=== PATIENT | male | born 1955 | race Caucasian/White ===

== ENCOUNTER → 2016-08-11 | Outpatient (CLI) | payer BC ==
[~2016-08-11] MED LIST: FLUTICASON0.05 MG/AC NS; LISINOPRIL10 MG PO; MUCINEX100 MG PO; OMEPRAZOLE D/R20 MG PO; PEPTO-BISM262 MG/15 PO; PROAIR HFA0.09 MG/AC IH
[2016-08-11 10:41] VITALS: BP 148/84
== END ==
LOC: AMSURD 07:37
DX: R07.9 Chest pain, unspecified (principal)

== ENCOUNTER → 2017-01-11 | Outpatient (CLI) | payer BC ==
[2016-08-11 10:41] VITALS: BP 148/84
== END ==
LOC: LAB 14:34
DX: R19.7 Diarrhea, unspecified (principal); R10.30 Lower abdominal pain, unspecified

== ENCOUNTER → 2017-01-12 | Outpatient (CLI) | payer BC ==
[2016-08-11 10:41] VITALS: BP 148/84
== END ==
LOC: LAB 17:26
DX: R19.5 Other fecal abnormalities (principal); R10.30 Lower abdominal pain, unspecified

== ENCOUNTER → 2017-06-29 | Outpatient (CLI) | payer BC ==
[2016-08-11 10:41] VITALS: BP 148/84
[2017-06-29 14:33] LABS: URINE APPEARANCE CLEAR; URINE BILIRUBIN NEGATIVE (NEGATIVE); URINE BLOOD NEGATIVE (NEGATIVE); URINE COLOR YELLOW; URINE GLUCOSE NEGATIVE (NEGATIVE); URINE KETONE NEGATIVE (NEGATIVE); URINE LEUKOCYTE ESTERASE NEGATIVE (NEGATIVE); URINE NITRATE NEGATIVE (NEGATIVE); URINE PROTEIN(semi-quant) NEGATIVE (NEGATIVE); URINE UROBILINOGEN NORMAL (NORMAL); URINE WBC 0-1 /hpf (0-3)
== END ==
LOC: LAB 13:42
PROVIDERS: Nurse Practitioner Family
DX: R35.0 Frequency of micturition (principal); Z88.1 Allergy status to other antibiotic agents

== ENCOUNTER → 2017-08-04 | Outpatient (CLI) | payer BC ==
[2016-08-11 10:41] VITALS: BP 148/84
[2017-08-04 09:05] LABS: EOS # 0.1 (0.04-0.40); EOS % 2.4 % (0.0-4.0); HEMATOCRIT 48.4 % (42.0-52.0); HEMOGLOBIN 15.7 g/dL (13.5-18.0); LYMPH# 1.1 (1.50-4.00); MEAN CELL VOLUME 86 fl (78-100); MEAN CORPUSCULAR HEMOGLOBIN 28 pg (27-31); MEAN CORPUSCULAR HGB CONC 32 g/dL (33-37); MEAN PLATELET VOLUME 10.9 fl (7.4-10.4); MONO # 0.6 (0.20-0.80); NEU # 3.9 (1.40-6.50); PLATELET COUNT 202 K/mm3 (130-400); RED CELL DISTRIBUTION WIDTH 14.7 % (11.5-14.5); WHITE BLOOD COUNT 5.8 K/mm3 (4.8-10.8)
[2017-08-04 09:19] LABS: ALBUMIN 4.4 g/dL (3.5-5.0); BUN/CREATININE RATIO 24.1 (6.0-26.0); CALCIUM 9.3 mg/dL (8.4-10.2); POTASSIUM 3.8 mmol/L (3.6-5.0); TOTAL BILIRUBIN 0.6 mg/dL (0.2-1.3); TOTAL PROTEIN 7.5 g/dL (6.3-8.2)
[2017-08-04 10:09] LABS: ERYTHROCYTE SEDIMENTATION RATE 0 mm/hr (0-20); URINE APPEARANCE CLEAR; URINE BILIRUBIN NEGATIVE (NEGATIVE); URINE BLOOD NEGATIVE (NEGATIVE); URINE COLOR YELLOW; URINE GLUCOSE NEGATIVE (NEGATIVE); URINE KETONE NEGATIVE (NEGATIVE); URINE LEUKOCYTE ESTERASE NEGATIVE (NEGATIVE); URINE NITRATE NEGATIVE (NEGATIVE); URINE PROTEIN(semi-quant) NEGATIVE (NEGATIVE); URINE UROBILINOGEN NORMAL (NORMAL); URINE WBC 0-1 /hpf (0-3)
[2017-08-04 10:10] LABS: URINE MUCUS PRESENT (NOT PRESENT)
[2017-08-05 01:03] LABS: TESTOSTERONE 384 ng/dL (221-716)
== END ==
LOC: LAB 08:50
PROVIDERS: Internal Medicine
DX: Z00.00 Encounter for general adult medical examination without abnormal findings (principal); Z12.5 Encounter for screening for malignant neoplasm of prostate; Z12.11 Encounter for screening for malignant neoplasm of colon; Z88.1 Allergy status to other antibiotic agents

== ENCOUNTER → 2019-02-01 | Outpatient (CLI) | payer BC ==
[2016-08-11 10:41] VITALS: BP 148/84
== END ==
LOC: RAD 08:38
DX: M79.89 Other specified soft tissue disorders (principal)

== ENCOUNTER → 2020-06-18 | Outpatient (CLI) | payer BC ==
[2016-08-11 10:41] VITALS: BP 148/84
== END ==
LOC: LAB 07:29
DX: J02.9 Acute pharyngitis, unspecified (principal); Z20.828 Contact with and (suspected) exposure to other viral communicable diseases

== ENCOUNTER → 2020-07-08 | Outpatient (CLI) | payer BC ==
[2016-08-11 10:41] VITALS: BP 148/84
[2020-07-08 09:08] LABS: EOS # 0.1 (0.04-0.40); EOS % 1.6 % (0.0-4.0); HEMATOCRIT 46.9 % (42.0-52.0); HEMOGLOBIN 15.4 g/dL (13.5-18.0); LYMPH# 1.1 (1.50-4.00); MEAN CELL VOLUME 86 fl (78-100); MEAN CORPUSCULAR HEMOGLOBIN 28 pg (27-31); MEAN CORPUSCULAR HGB CONC 33 g/dL (33-37); MEAN PLATELET VOLUME 10.7 fl (7.4-10.4); MONO # 0.7 (0.20-0.80); NEU # 4.4 (1.40-6.50); PLATELET COUNT 224 K/mm3 (130-400); RED BLOOD COUNT 5.45 M/mm3 (4.20-5.60); RED CELL DISTRIBUTION WIDTH 14.4 % (11.5-14.5); WHITE BLOOD COUNT 6.3 K/mm3 (4.8-10.8)
[2020-07-08 09:14] LABS: ALBUMIN 4.6 g/dL (3.4-4.8); POTASSIUM 3.3 mmol/L (3.5-5.1)
[2020-07-08 09:16] LABS: CALCIUM 9.4 mg/dL (8.3-10.5)
[2020-07-08 09:17] LABS: TOTAL PROTEIN 7.4 g/dL (6.2-8.1)
[2020-07-08 09:19] LABS: TOTAL BILIRUBIN 0.8 mg/dL (0.2-1.2)
== END ==
LOC: LAB 08:13
PROVIDERS: Internal Medicine
DX: Z12.5 Encounter for screening for malignant neoplasm of prostate (principal); Z12.11 Encounter for screening for malignant neoplasm of colon; I25.10 Atherosclerotic heart disease of native coronary artery without angina pectoris; K90.9 Intestinal malabsorption, unspecified

== ENCOUNTER → 2022-02-17 | Outpatient (CLI) | payer MEDICARE ==
[2022-02-17 17:04] LABS: URINE APPEARANCE CLEAR; URINE COLOR YELLOW
[2022-02-17 17:05] LABS: URINE BILIRUBIN NEGATIVE (NEGATIVE); URINE BLOOD NEGATIVE (NEGATIVE); URINE GLUCOSE NEGATIVE (NEGATIVE); URINE KETONE NEGATIVE (NEGATIVE); URINE LEUKOCYTE ESTERASE NEGATIVE (NEGATIVE); URINE NITRATE NEGATIVE (NEGATIVE); URINE PROTEIN(semi-quant) NEGATIVE (NEGATIVE); URINE UROBILINOGEN NORMAL (NORMAL); URINE WBC 0-1 /hpf (0-3)
== END ==
LOC: LAB 16:14
PROVIDERS: Nurse Practitioner
DX: R35.0 Frequency of micturition (principal); M54.50 Low back pain, unspecified

== ENCOUNTER → 2022-02-18 | Outpatient (CLI) | payer MEDICARE ==
[2022-02-18 09:18] LABS: BASO # 0.03 K/mm3 (0.02-0.10); EOS # 0.14 K/mm3 (0.04-0.40); EOS % 2.2 % (0.0-4.0); HEMATOCRIT 45.9 % (42.0-52.0); HEMOGLOBIN 15.1 g/dL (13.5-18.0); LYMPH# 1.17 K/mm3 (1.50-4.00); MEAN CELL VOLUME 87 fl (78-100); MEAN CORPUSCULAR HEMOGLOBIN 29 pg (27-31); MEAN CORPUSCULAR HGB CONC 33 g/dL (33-37); MEAN PLATELET VOLUME 10.7 fl (7.4-10.4); MONO # 0.65 K/mm3 (0.20-0.80); NEU # 4.38 K/mm3 (1.40-6.50); PLATELET COUNT 205 K/mm3 (130-400); RED BLOOD COUNT 5.29 M/mm3 (4.20-5.60); RED CELL DISTRIBUTION WIDTH 14.1 % (11.5-14.5); WHITE BLOOD COUNT 6.4 K/mm3 (4.8-10.8)
[2022-02-18 09:19] LABS: ALBUMIN 4.5 g/dL (3.4-4.8); POTASSIUM 3.6 mmol/L (3.5-5.1)
[2022-02-18 09:20] LABS: CALCIUM 9.5 mg/dL (8.3-10.5)
[2022-02-18 09:22] LABS: TOTAL PROTEIN 7.3 g/dL (6.2-8.1)
[2022-02-18 09:23] LABS: TOTAL BILIRUBIN 0.9 mg/dL (0.2-1.2)
[2022-02-18 09:28] LABS: MAGNESIUM 2.05 mg/dL (1.60-2.60)
[2022-02-18 10:24] LABS: ERYTHROCYTE SEDIMENTATION RATE 26 mm/hr (0-20)
== END ==
LOC: LAB 08:50
PROVIDERS: Nurse Practitioner
DX: I10 Essential (primary) hypertension (principal); M54.50 Low back pain, unspecified; R35.0 Frequency of micturition

== ENCOUNTER 2022-05-11 14:23 | Emergency (ER) | payer MEDICARE ==
[~2022-05-11] VITALS: Ht 172.7 cm; Wt 92.7 kg
[2022-05-11] MEDS ORDERED: NORVASC 10MG10 MG PO (15:00)
[2022-05-11] MEDS ORDERED: HYDROCHLOROTHIA50 M1 PO (15:01)
[2022-05-11] MEDS ORDERED: LOSARTAN POTASS50 M1 PO (15:01)
[2022-05-11] MEDS ORDERED: PROTONIX TR40 M1 PO (15:02)
[2022-05-11] MEDS ORDERED: POTASSIUM CHLO20 ME4 PO (15:02)
[2022-05-11 17:32] LABS: BASO # 0.02 K/mm3 (0.02-0.10); EOS # 0.18 K/mm3 (0.04-0.40); EOS % 2.2 % (0.0-4.0); HEMATOCRIT 44.7 % (42.0-52.0); LYMPH# 1.21 K/mm3 (1.50-4.00); MEAN CELL VOLUME 88 fl (78-100); MEAN CORPUSCULAR HEMOGLOBIN 29 pg (27-31); MEAN CORPUSCULAR HGB CONC 34 g/dL (33-37); MEAN PLATELET VOLUME 10.9 fl (7.4-10.4); MONO # 0.71 K/mm3 (0.20-0.80); NEU # 5.94 K/mm3 (1.40-6.50); PLATELET COUNT 221 K/mm3 (130-400); RED CELL DISTRIBUTION WIDTH 13.9 % (11.5-14.5); WHITE BLOOD COUNT 8.1 K/mm3 (4.8-10.8)
[2022-05-11 17:37] LABS: ALBUMIN 4.5 g/dL (3.4-4.8); POTASSIUM 3.6 mmol/L (3.5-5.1)
[2022-05-11 17:38] LABS: CALCIUM 9.6 mg/dL (8.3-10.5)
[2022-05-11 17:39] LABS: TOTAL PROTEIN 7.6 g/dL (6.2-8.1)
[2022-05-11 17:41] LABS: TOTAL BILIRUBIN 0.6 mg/dL (0.2-1.2)
[2022-05-11 19:04] VITALS: BP 135/91
== END 2022-05-11 19:05 | disposition home or self-care (01) ==
LOC: ED 14:23
PROVIDERS: Nurse Practitioner
DX: K21.9 Gastro-esophageal reflux disease without esophagitis (principal); I51.9 Heart disease, unspecified; Z20.822 Contact with and (suspected) exposure to COVID-19; Z95.9 Presence of cardiac and vascular implant and graft, unspecified

== ENCOUNTER → 2023-03-08 | Outpatient (CLI) | payer MEDICARE ==
[~2023-03-08] MED LIST changes: +HYDROCHLOROTHIA50 M1 PO; +LOSARTAN POTASS50 M1 PO; +NORVASC 10MG10 MG PO; +POTASSIUM CHLO20 ME4 PO; +PROTONIX TR40 M1 PO
== END ==
LOC: RAD 07:45
DX: M51.36 Other intervertebral disc degeneration, lumbar region (principal); M48.061 Spinal stenosis, lumbar region without neurogenic claudication; M41.86 Other forms of scoliosis, lumbar region

== ENCOUNTER → 2023-04-22 | Outpatient (CLI) | payer MEDICARE ==
[2023-04-22 09:54] LABS: BASO # 0.01 K/mm3 (0.02-0.10); EOS # 0.11 K/mm3 (0.04-0.40); EOS % 1.8 % (0.0-4.0); HEMATOCRIT 44.8 % (42.0-52.0); HEMOGLOBIN 14.6 g/dL (13.5-18.0); LYMPH# 1.16 K/mm3 (1.50-4.00); MEAN CELL VOLUME 89 fl (78-100); MEAN CORPUSCULAR HEMOGLOBIN 29 pg (27-31); MEAN CORPUSCULAR HGB CONC 33 g/dL (33-37); MEAN PLATELET VOLUME 10.6 fl (7.4-10.4); MONO # 0.55 K/mm3 (0.20-0.80); NEU # 4.22 K/mm3 (1.40-6.50); PLATELET COUNT 208 K/mm3 (130-400); RED BLOOD COUNT 5.03 M/mm3 (4.20-5.60); RED CELL DISTRIBUTION WIDTH 14.2 % (11.5-14.5); WHITE BLOOD COUNT 6.1 K/mm3 (4.8-10.8)
[2023-04-22 10:03] LABS: ALBUMIN 4.5 g/dL (3.4-4.8)
[2023-04-22 10:04] LABS: CALCIUM 9.5 mg/dL (8.3-10.5)
[2023-04-22 10:06] LABS: TOTAL PROTEIN 7.4 g/dL (6.2-8.1)
[2023-04-22 10:08] LABS: TOTAL BILIRUBIN 0.7 mg/dL (0.2-1.2)
[2023-04-22 10:12] LABS: MAGNESIUM 2.01 mg/dL (1.60-2.60)
[2023-04-22 11:21] LABS: ERYTHROCYTE SEDIMENTATION RATE 18 mm/hr (0-20)
[2023-04-22 21:14] LABS: TESTOSTERONE 377 ng/dL (221-716)
[2023-04-22 21:22] LABS: HEPATITIS C VIRUS ANTIBODY Negative (Negative)
== END ==
LOC: LAB 09:41
PROVIDERS: Internal Medicine
DX: Z12.5 Encounter for screening for malignant neoplasm of prostate (principal); Z12.11 Encounter for screening for malignant neoplasm of colon; Z11.59 Encounter for screening for other viral diseases; I10 Essential (primary) hypertension; K90.9 Intestinal malabsorption, unspecified; R73.9 Hyperglycemia, unspecified; I25.10 Atherosclerotic heart disease of native coronary artery without angina pectoris; G47.33 Obstructive sleep apnea (adult) (pediatric); F52.21 Male erectile disorder; E55.9 Vitamin D deficiency, unspecified

== ENCOUNTER 2024-05-15 17:02 | Emergency (ER) | payer MEDICARE ==
[~2024-05-15] VITALS: Ht 165.1 cm; Wt 104.3 kg
[2024-05-15] MEDS ORDERED: B12 ACTIVE1000 MCG PO (17:16)
[2024-05-15] MEDS ORDERED: VITAMIN D3 PO (17:16)
[2024-05-15] MEDS ORDERED: Lidocaine 2% Viscous 15 ML UNIT DOSE CUP MM ONE (17:30)
[2024-05-15] MEDS ORDERED: Mag/Al Hydrox/Simeth Susp 30 ML CUP PO ONE (17:30)
[2024-05-15 17:34] LABS: BASO # 0.01 K/mm3 (0.02-0.10); EOS # 0.02 K/mm3 (0.04-0.40); EOS % 0.2 % (0.0-4.0); HEMATOCRIT 44.5 % (42.0-52.0); HEMOGLOBIN 14.8 g/dL (13.5-18.0); MEAN CELL VOLUME 87 fl (78-100); MEAN CORPUSCULAR HEMOGLOBIN 29 pg (27-31); MEAN CORPUSCULAR HGB CONC 33 g/dL (33-37); MEAN PLATELET VOLUME 10.4 fl (7.4-10.4); MONO # 0.76 K/mm3 (0.20-0.80); NEU # 6.89 K/mm3 (1.40-6.50); PLATELET COUNT 213 K/mm3 (130-400); RED BLOOD COUNT 5.12 M/mm3 (4.20-5.60); RED CELL DISTRIBUTION WIDTH 14.2 % (11.5-14.5)
[2024-05-15 17:42] LABS: ALBUMIN 4.6 g/dL (3.4-4.8)
[2024-05-15 17:43] LABS: CALCIUM 9.7 mg/dL (8.3-10.5)
[2024-05-15 17:44] LABS: TOTAL PROTEIN 7.4 g/dL (6.2-8.1)
[2024-05-15 17:46] LABS: TOTAL BILIRUBIN 0.6 mg/dL (0.2-1.2)
[2024-05-15 17:56] LABS: TROPONIN-I 0.032 ng/mL (0.00-0.033)
[2024-05-15 18:41] VITALS: BP 143/90
== END 2024-05-15 18:45 | disposition home or self-care (01) ==
LOC: ED 17:02
PROVIDERS: Physician Assistant
DX: K21.9 Gastro-esophageal reflux disease without esophagitis (principal)

== ENCOUNTER 2024-07-18 08:04 | Emergency (ER) | payer MEDICARE ==
[~2024-07-18] VITALS: Ht 165.1 cm; Wt 101.4 kg
[~2024-07-18 08:04] MED LIST changes: +B12 ACTIVE1000 MCG PO; +VITAMIN D3 PO
[2024-07-18] MEDS ORDERED: NS 1,000 ML IV ONE (08:15)
[2024-07-18 08:32] LABS: EOS # 0.04 K/mm3 (0.04-0.40); EOS % 0.7 % (0.0-4.0); HEMOGLOBIN 14.6 g/dL (13.5-18.0); LYMPH# 0.63 K/mm3 (1.50-4.00); MEAN CELL VOLUME 87 fl (78-100); MEAN CORPUSCULAR HEMOGLOBIN 29 pg (27-31); MEAN CORPUSCULAR HGB CONC 33 g/dL (33-37); MEAN PLATELET VOLUME 10.5 fl (7.4-10.4); MONO # 0.54 K/mm3 (0.20-0.80); NEU # 4.29 K/mm3 (1.40-6.50); PLATELET COUNT 214 K/mm3 (130-400); RED BLOOD COUNT 5.04 M/mm3 (4.20-5.60); RED CELL DISTRIBUTION WIDTH 14.2 % (11.5-14.5); WHITE BLOOD COUNT 5.5 K/mm3 (4.8-10.8)
[2024-07-18 09:42] VITALS: BP 127/74
== END 2024-07-18 09:35 | disposition home or self-care (01) ==
LOC: ED 08:04
PROVIDERS: Family Medicine
DX: R07.89 Other chest pain (principal); E66.9 Obesity, unspecified; Z68.37 Body mass index [BMI] 37.0-37.9, adult
CPT/HCPCS: J7030

== ENCOUNTER → 2024-09-07 | Outpatient (CLI) | payer MEDICARE ==
[~2024-09-07] VITALS: Ht 165.1 cm; Wt 101.2 kg
== END ==
LOC: CARDREHAB 07:46
DX: R07.89 Other chest pain (principal)
CPT/HCPCS: A9500

== ENCOUNTER → 2024-09-18 | Outpatient (CLI) | payer MEDICARE ==
[2024-09-18 12:16] LABS: BASO # 0.01 K/mm3 (0.02-0.10); EOS # 0.03 K/mm3 (0.04-0.40); EOS % 0.5 % (0.0-4.0); HEMATOCRIT 45.6 % (42.0-52.0); LYMPH# 1.01 K/mm3 (1.50-4.00); MEAN CELL VOLUME 87 fl (78-100); MEAN CORPUSCULAR HEMOGLOBIN 29 pg (27-31); MEAN CORPUSCULAR HGB CONC 33 g/dL (33-37); MEAN PLATELET VOLUME 10.5 fl (7.4-10.4); MONO # 0.55 K/mm3 (0.20-0.80); NEU # 4.34 K/mm3 (1.40-6.50); PLATELET COUNT 226 K/mm3 (130-400); RED BLOOD COUNT 5.24 M/mm3 (4.20-5.60); RED CELL DISTRIBUTION WIDTH 14.4 % (11.5-14.5)
[2024-09-18 12:22] LABS: ALBUMIN 4.6 g/dL (3.4-4.8)
[2024-09-18 12:24] LABS: TOTAL PROTEIN 7.7 g/dL (6.2-8.1)
[2024-09-18 12:26] LABS: TOTAL BILIRUBIN 0.7 mg/dL (0.2-1.2)
[2024-09-18 12:31] LABS: MAGNESIUM 1.91 mg/dL (1.60-2.60)
== END ==
LOC: LAB 11:47
PROVIDERS: Internal Medicine
DX: Z12.5 Encounter for screening for malignant neoplasm of prostate (principal); I10 Essential (primary) hypertension; K90.9 Intestinal malabsorption, unspecified; I25.10 Atherosclerotic heart disease of native coronary artery without angina pectoris